=== PATIENT | female | born 1995 | race Caucasian/White ===

== ENCOUNTER 2017-01-24 11:55 | Emergency (ER) | payer BC ==
[2017-01-24 12:43] VITALS: BP 139/73
--- NOTE | 2017-01-24 12:54 | UC ---
General HPI - HPI Summary HPI Summary: Lower right sided lip painful lesion for 4 days; lesion on upper lip has healed. SHe thought it was a canker sore. + tingling and burning and painful. had d/c. - History of Current Complaint Chief Complaint: UCRash Stated Complaint: ORAL COMPLAINT Time Seen by Provider: 01/24/17 12:53 - Allergy/Home Medications Allergies/Adverse Reactions: Allergies Allergy/AdvReac Type Severity Reaction Status Date / Time No Known Allergies Allergy Verified 01/24/17 12:36 PMH/Surg Hx/FS Hx/Imm Hx Previously Healthy: Yes - Surgical History Surgical History: None - Family History Known Family History: Positive: Other - positive family history of strep throat Negative: Diabetes - Social History Alcohol Use: Occasionally Substance Use Type: None Smoking Status (MU): Never Smoked Tobacco - Immunization History Most Recent Influenza Vaccination: Not the Season Review of Systems Constitutional: Negative Skin: Other - rt lower lip Eyes: Negative ENT: Negative Respiratory: Negative Cardiovascular: Negative Gastrointestinal: Negative Genitourinary: Negative Motor: Negative Neurovascular: Negative Musculoskeletal: Negative Neurological: Negative Psychological: Negative All Other Systems Reviewed And Are Negative: Yes Physical Exam Triage Information Reviewed: Yes Appearance: Well-Appearing, No Pain Distress, Well-Nourished Vital Signs: Initial Vital Signs Temp 98 F 01/24/17 12:28 Pulse 64 01/24/17 12:28 Resp 18 01/24/17 12:28 BP 139/73 01/24/17 12:28 Vital Signs Reviewed: Yes Eye Exam: Normal ENT: Positive: Pharynx normal, TMs normal, Other: - rt lower lip with open sore that is crusting. no active discharge. Dental Exam: Normal Neck exam: Normal Neck: Positive: Supple, Nontender, Enlarged Nodes @ - mil right anterior cervical. Respiratory Exam: Normal Respiratory: Positive: Lungs clear, Normal breath sounds, No respiratory distress, No accessory muscle use Cardiovascular Exam: Normal Cardiovascular: Positive: RRR, No Murmur, Pulses Normal, Brisk Capillary Refill Abdomen Description: Positive: Nontender, Soft Musculoskeletal Exam: Normal Neurological Exam: Normal Psychological Exam: Normal Skin Exam: Normal Course/Dx - Course Course Of Treatment: Discussed treatment is too late as she has exceeding 48 hrs. I have given her a rx for future outbreak to use immediately with outbreak. We did discuss that this is contagious and can also be transmitted sexually as well and to use precautions. - Differential Dx - Multi-Symptom Differential Diagnoses: Other - herpes simplex, canker sore Provider Diagnoses: oral herpes simplex Discharge - Discharge Plan Condition: Stable Disposition: HOME Prescriptions: ValACYclovir (*) [Valtrex 1 GM(*)] 2 gm PO BID #16 tab Patient Education Materials: Oral Herpes Simplex Virus Infections (ED) Referrals: Non Staff,Doctor [Primary Care Provider] - Additional Instructions: Follow up if not better or worsens either here or at [facility].
== END 2017-01-24 13:12 | disposition home or self-care (01) ==
LOC: UCCORT 11:55
DX: B00.1 Herpesviral vesicular dermatitis (principal)
CPT/HCPCS: 99212; G0463

== ENCOUNTER 2017-12-12 13:27 | Emergency (ER) | payer BC ==
[2017-12-12 15:23] VITALS: BP 143/69
--- NOTE | 2017-12-12 16:04 | UC ---
HPI Febrile Illness - HPI Summary HPI Summary: 22 year old female with swollen lymph nodes. when she woke up this morning her glands on the left side of her neck were swollen. She denies sore throat. She denies fever, feeling tired, flu like symptoms. She has never had mono before. No exposure to illness she can recall . No family history of lymph node issues. No problems swallowing. No neck pain. Has FROM of the neck . No headache. She was hoping it was the beginning of strep and to catch it early [ End ] - History of Current Complaint Chief Complaint: UCGeneralIllness Time Seen by Provider: 12/12/17 15:46 Hx Obtained From: Patient Hx Last Menstrual Period: 11/19/17 Timing: Constant Pain Intensity: 7 - Allergy/Home Medications Allergies/Adverse Reactions: Allergies Allergy/AdvReac Type Severity Reaction Status Date / Time No Known Allergies Allergy Verified 12/12/17 15:23 PMH/Surg Hx/FS Hx/Imm Hx Previously Healthy: Yes - Surgical History Surgical History: Yes Surgery Procedure, Year, and Place: wisdom teeth - Family History Known Family History: Positive: Other - positive family history of strep throat Negative: Diabetes - Social History Occupation: Student Lives: Dormitory/Roommates Alcohol Use: Weekly Substance Use Type: None Smoking Status (MU): Never Smoked Tobacco - Immunization History Most Recent Influenza Vaccination: Not the 2015/2016 Season Review of Systems Constitutional: Negative Skin: Negative Eyes: Negative ENT: Other - lymph node enlargement Respiratory: Negative Cardiovascular: Negative Gastrointestinal: Negative Genitourinary: Negative Motor: Negative Neurovascular: Negative Musculoskeletal: Negative Neurological: Negative Psychological: Negative All Other Systems Reviewed And Are Negative: Yes Physical Exam Triage Information Reviewed: Yes Appearance: Well-Appearing, No Pain Distress, Well-Nourished Vital Signs: Initial Vital Signs Temp 98.8 F 12/12/17 15:18 Pulse 107 12/12/17 15:18 Resp 14 12/12/17 15:18 BP 143/69 12/12/17 15:18 Pulse Ox 100 12/12/17 15:18 Vital Signs Reviewed: Yes Eye Exam: Normal ENT Exam: Normal Dental Exam: Normal Neck exam: Normal Neck: Positive: Supple, Enlarged Nodes @ - left anterior cervical lymph node enlargement Respiratory Exam: Normal Cardiovascular Exam: Normal Musculoskeletal Exam: Normal Neurological Exam: Normal Psychological Exam: Normal Skin Exam: Normal Course/Dx - Course Course Of Treatment: Appears viral in nature at this time. Please consider antihistamine and/of nasal sprays like flonase for your congestion. If your symptoms are not improved or worsened over the next 3-4 days then start your oral antibiotics. If you are not improved in a couple days then seek medical care for further evaluation which could potentially include imaging studies - Febrile Illness Differential Diagnoses: Abscess, Viremia - Diagnoses Clinic Provider Diagnoses: Left anterior cervical lymphadenitis Discharge - Discharge Plan Condition: Good Disposition: HOME Prescriptions: Amoxicillin/Clavulanate TAB* [Augmentin TAB 875*] 875 mg PO BID #20 tab Patient Education Materials: Adenitis (ED) Referrals: No Primary Care Phys,NOPCP [Primary Care Provider] - If Needed Additional Instructions: Appears viral in nature at this time. Please consider antihistamine and/of nasal sprays like flonase for your congestion. If your symptoms are not improved or worsened over the next 3-4 days then start your oral antibiotics. If you are not improved in a couple days then seek medical care for further evaluation which could potentially include imaging studies
== END 2017-12-12 16:35 | disposition home or self-care (01) ==
LOC: UCCORT 13:27
DX: L04.0 Acute lymphadenitis of face, head and neck (principal)
CPT/HCPCS: 87651; 99212; G0463